=== PATIENT | male | born 1960 | race Caucasian/White ===

== ENCOUNTER 2020-10-11 07:00 | Outpatient (CLI) | payer SELFPAY ==
[2020-10-11 15:50] LABS: Hemoglobin 16.7 g/dL (14.0-18.0); Mean Corpuscular HGB CONC 34.1 G/DL (32.0-36.0); Mean Corpuscular Hemoglobin 32.4 PG (27.0-33.0); Mean Corpuscular Volume 95.1 fl (80.0-100.0); Platelet Count 196 10x3/uL (130-400); RBC Distribution Width 11.8 % (11.5-14.5); Red Blood Cell (RBC) Count 5.15 10x6/uL (4.40-5.80); White Blood Cell (WBC) Count 11.2 10x3/uL (4.5-11.0)
[2020-10-11 16:33] LABS: Anion Gap 14 mmol/L (10-20); BUN (Urea Nitrogen) 10 mg/dL (8.4-25.7); Calc. Creatinine Clearance 0 mL/min (70-130); Calcium 8.9 mg/dL (7.8-10.44); Carbon Dioxide 27 mmol/L (22-29); Chloride 104 mmol/L (98-107); Estimated GFR-MDRD 89; Glucose 94 mg/dL (70-105); Potassium 4.1 mmol/L (3.5-5.1); Sodium 141 mmol/L (136-145)
[2020-10-12 03:43] LABS: SARS-CoV-2 MS2 Positive; SARS-CoV-2 N Gene Negative; SARS-CoV-2 S Gene Negative; SARS-CoV-2 by NAA Not Detected (NotDetected); SARS-CoV-2 orf1ab Negative
== END 2020-10-11 07:01 | disposition home or self-care (01) ==
LOC: LABBT 07:00
PROVIDERS: ATTEND Neurological Surgery
DX: Z01.818 Encounter for other preprocedural examination (principal); Z20.828 Contact with and (suspected) exposure to other viral communicable diseases; M47.12 Other spondylosis with myelopathy, cervical region
CPT/HCPCS: 80048; 85027; 87635; 93005; 93010; U0003

== ENCOUNTER 2020-10-11 15:15 | Inpatient (IN) | payer OTHER, SELFPAY ==
[2020-10-16] MEDS ORDERED: Midazolam HCl 2 mg/2 ml Vial ONE (09:35)
[2020-10-16] MEDS ORDERED: Fentanyl 100 MCG/2 ML VIAL ONE ×4 (09:35→12:48)
[2020-10-16] MEDS ORDERED: Bacitracin Zinc Ointment 30 gm TUBE ONE (10:29)
[2020-10-16] MEDS ORDERED: SUGAMMADEX SODIUM 200 MG/2 ML VIAL ONE (12:07)
--- NOTE | 2020-10-16 12:32 | OP ---
DATE OF PROCEDURE: 10/16/2020 ENGINEERING RESEARCH MANAGER: Eric. PROCEDURES PERFORMED: Removal of hardware, C4 through C7; expiration of spinal fusion, C4 through C7; anterior cervical diskectomy, C3-C4; interbody arthrodesis; intervertebral biomechanical device; local morselized autograft; demineralized bone matrix; anterior titanium instrumentation, C3-4. Posterior approach, C3-4 laminectomy; posterolateral arthrodesis, C3-4; lateral mass screws, C3-4; demineralized bone matrix; local morselized autograft. DESCRIPTION OF PROCEDURE: The patient was brought to the operating room and intubated. He was positioned supine with head in modest extension on a gel-filled donut. A new incision was made in transverse fashion in the right precervical area and dissected medial to the sternocleidomastoid muscle. We identified the anterior cervical spine and identified the prior plate. The prior plate was removed without difficulty and the C4 through C7 levels were explored and seemed to be solidly fused. We next placed distraction across C3-4 and removed the intervertebral disk and using the operative microscope and microdissection techniques, completely decompressed down to the dura from foramen to foramen. The bony endplates were then decorticated for the purpose of arthrodesis and appropriate-sized intervertebral biomechanical PEEK device was brought into the field, filled with demineralized bone matrix; local morselized autograft, and tapped in place securely at C3-4. Next, an anterior plate was brought into field and secured to C3 and C4 using two 14-mm screws at each level. The wound was then extensively irrigated. MAC hemostasis was secured, and the wound was closed in anatomic layers over drain. The patient was then rolled in a prone position on gel-filled chest rolls with the head fixed in a Melida head irrigator in a neutral position. A midline incision was made, and C3 and C4 levels were identified. We performed complete C4 and complete C3 laminectomies for the purpose of decompression. We next placed right-sided lateral mass screws at right C3 and right C4 connected by rods and secured by nuts. The wound was then extensively irrigated. MAC hemostasis was secured. A combination of demineralized bone matrix; local morselized autograft was laid over the lamina posterolateral surfaces for the purpose of arthrodesis. Vancomycin powder was applied, and the wound was closed in anatomic layers over drain. Job ID: [id number]
[2020-10-16] MEDS ORDERED: Promethazine HCl 25 MG/ML VIAL ONE (12:49)
[2020-10-16] MEDS ORDERED: Labetalol HCl 100 MG/20 ML VIAL ONE (13:08)
[2020-10-16] MEDS ORDERED: HYDROmorphone 0.5 MG/0.5 ML SYRINGE ONE ×4 (13:08→16:41)
[2020-10-16] MEDS ORDERED: Dexamethasone 20 MG/5 ML VIAL ONE (14:14)
[2020-10-16] MEDS ORDERED: Glycopyrrolate 0.2 MG/ML 5 ML SYRINGE ONE (14:14)
[2020-10-16] MEDS ORDERED: Ondansetron PF 4 MG/2 ML Vial ONE (14:14)
[2020-10-16] MEDS ORDERED: PROPOFOL 200 MG/20 ML VIAL ONE (14:14)
[2020-10-16] MEDS ORDERED: Lidocaine 1% PF 5 ML VIAL ONE (14:14)
[2020-10-16] MEDS ORDERED: Rocuronium Bromide 10 MG/ML (10ML VIAL) ONE (14:14)
[2020-10-16] MEDS ORDERED: traMADol HCl 50 MG TAB ONE (14:28)
[2020-10-16] MEDS ORDERED: HYDROcodone/Acetaminophen 10/325 mg Tablet ONE (17:42)
[2020-10-16] MEDS ORDERED: Diazepam 5 MG TAB PO PRN (19:38)
[2020-10-16] MEDS ORDERED: HYDROcodone/Acetaminophen 10/325 mg Tablet PO PRN ×2 (19:39→19:45)
[2020-10-16] MEDS ORDERED: diphenhydrAMINE 50 MG/ML VIAL IVP PRN (19:45)
[2020-10-16] MEDS ORDERED: tiZANidine HCl 4 MG TAB PO PRN (19:45)
[2020-10-16] MEDS ORDERED: Morphine 4 MG/ML VIAL SLOW IVP PRN (19:45)
[2020-10-16] MEDS ORDERED: Mag-Al 1200 mg/1200 mg/30 ML UDCUP PO PRN (19:45)
[2020-10-16] MEDS ORDERED: traMADol HCl 50 MG TAB PO PRN ×2 (19:45)
[2020-10-16] MEDS ORDERED: Morphine 2 MG/ML VIAL SLOW IVP PRN (19:45)
[2020-10-16] MEDS ORDERED: Milk Of Magnesia 30 ML UDCUP PO PRN (19:45)
[2020-10-16] MEDS ORDERED: Promethazine HCl 25 MG/ML VIAL IM PRN (19:45)
[2020-10-16] MEDS ORDERED: Ondansetron PF 4 MG/2 ML Vial IVP PRN (19:48)
[2020-10-16] MEDS ORDERED: diphenhydrAMINE 25 MG CAP PO PRN (19:50)
[2020-10-16] MEDS: HYDROcodone/Acetaminophen 10/325 mg Tablet PO PRN (21:58)
[2020-10-16] MEDS: CEFAZOLIN 2 GM in Premix Bag 1 BAG IVPB SCH (21:59)
[2020-10-16] MEDS: Sodium Chloride 0.9% 1,000 ML IV SCH (22:00)
[2020-10-16 22:42] VITALS: BMI 31.1
[2020-10-17] MEDS: CEFAZOLIN 2 GM in Premix Bag 1 BAG IVPB SCH (05:32)
[2020-10-17] MEDS: HYDROcodone/Acetaminophen 10/325 mg Tablet PO PRN (05:34)
[2020-10-17] MEDS ORDERED: Tamsulosin HCl 0.4 MG CAP PO SCH (06:00)
--- NOTE | 2020-10-17 07:54 | DIS ---
DATE OF ADMISSION: 10/16/2020 DATE OF DISCHARGE: 10/17/2020 PROCEDURE: Removal of hardware, C3-C4 anterior and posterior decompression and fusion. DISCHARGE SUMMARY: The patient is a 60-year-old male, known to us for prior C4-C7 ACDF years ago, who was recently evaluated for progressive neck pain and myelopathic symptoms. He was found to have severe stenosis above this prior fusion at C3-C4. He underwent removal of hardware and C3-C4 anterior and posterior decompression and fusion. Following the surgery, he was transitioned to the Med/Surg floor, where his pain has been well controlled with p.o. medications, he is tolerating a regular diet, and he is voiding appropriately. He has been ambulating easily in the hallways. MEGHAN-A had 35 mL out overnight. MEGHAN-B had 0 mL out overnight. These were removed on postoperative day #1. We will plan to dismiss to home. I have discussed home care precautions. We will follow up with the patient in 2 weeks. The patient was provided with scripts for Solen, diazepam, and Keflex. [facility] Olvin checked prior to discharge. Job ID: [id number]
[2020-10-17] MEDS: Sodium Chloride 0.9% 1,000 ML IV SCH (07:59)
[2020-10-17] MEDS ORDERED: metFORMIN 500 MG TAB PO SCH (08:00)
[2020-10-17] MEDS ORDERED: Senokot 8.6 MG TAB PO SCH (09:00)
[2020-10-17] MEDS ORDERED: Atorvastatin Calcium 20 MG TAB PO SCH (09:00)
[2020-10-17] MEDS ORDERED: Lisinopril 20 MG TAB PO SCH (09:00)
[2020-10-17 11:31] VITALS: BP 145/82; TEMP 98.6
== END 2020-10-17 11:44 | disposition home or self-care (01) | DRG 454 ==
LOC: SURG A 10-16 06:58 → SJJU 10-16 19:01
PROVIDERS: ADMIT Neurological Surgery; ATTEND Neurological Surgery
PROC: 0RG10A0 Fusion of Cervical Vertebral Joint with Interbody Fusion Device, Anterior Approach, Anterior Column, Open Approach (ICD-10-PCS; principal; 2020-10-16)
PROC: 0RG1071 Fusion of Cervical Vertebral Joint with Autologous Tissue Substitute, Posterior Approach, Posterior Column, Open Approach (ICD-10-PCS; 2020-10-16)
PROC: 0RB30ZZ Excision of Cervical Vertebral Disc, Open Approach (ICD-10-PCS; 2020-10-16)
PROC: 0PP304Z Removal of Internal Fixation Device from Cervical Vertebra, Open Approach (ICD-10-PCS; 2020-10-16)
PROC: 00NW0ZZ Release Cervical Spinal Cord, Open Approach (ICD-10-PCS; 2020-10-16)
DX: M48.02 Spinal stenosis, cervical region (principal); M47.12 Other spondylosis with myelopathy, cervical region; M50.01 Cervical disc disorder with myelopathy, high cervical region; Z20.828 Contact with and (suspected) exposure to other viral communicable diseases; I10 Essential (primary) hypertension; E78.5 Hyperlipidemia, unspecified; E66.9 Obesity, unspecified; F17.210 Nicotine dependence, cigarettes, uncomplicated; K59.00 Constipation, unspecified; E11.9 Type 2 diabetes mellitus without complications; Z68.31 Body mass index [BMI] 31.0-31.9, adult; Z79.899 Other long term (current) drug therapy; Z79.84 Long term (current) use of oral hypoglycemic drugs
CPT/HCPCS: 76000; C1713; C1768; C1776; J0690; J1100; J1170; J2250; J2405; J2550; J2704; J3010; J3370; J3490

== ENCOUNTER 2020-11-02 09:36 | Outpatient (CLI) | payer OTHER ==
--- NOTE | 2020-11-02 09:58 | RAD ---
CERVICAL SPINE 4 VIEWS: HISTORY: Cervical radiculopathy. Postop followup. COMPARISON: Comparison is made to cervical spine films from 2014. FINDINGS: Prior exam showed anterior plate and screws with interbody implants at the C4, C5, C6, and C7 levels. On today's exam, the prior plate and screws have been removed and there are now anterior plate and sc rews transfixing C3 and C4. The interbody implants noted previously remain in place and there is par tial fusion. There is new interbody implant at C3-4. There are also posterior pedicle screws with ro ds on the right at these levels. Posterior skin silvio are seen. Degenerative spondylytic changes are noted at the C5-6, C6-7 levels and there are anterior bridging o steophytes with partial fusion at these levels. IMPRESSION: [id number] and degenerative changes of the cervical spine noted. POS: AGW
== END 2020-11-02 09:37 | disposition home or self-care (01) ==
LOC: TBSIIMAG 09:36
PROVIDERS: ATTEND Neurological Surgery
DX: M47.12 Other spondylosis with myelopathy, cervical region (principal); M47.22 Other spondylosis with radiculopathy, cervical region; Z98.890 Other specified postprocedural states
CPT/HCPCS: 72040

== ENCOUNTER 2020-12-12 10:30 | Outpatient (CLI) | payer BC, OTHER ==
--- NOTE | 2020-12-12 12:04 | RAD ---
CERVICAL SPINE 3 VIEWS: Date: 12/12/2020 HISTORY: Spondylolysis with myelopathy. Status post surgery 7 weeks ago with pain. COMPARISON: 11/02/2020. FINDINGS: Anterior cervical fusion changes C3-C4 with intradiscal prosthesis. In addition, there are intradisca l prosthesis changes at C4-C5, C5-C6, and C6-C7. No significant malalignment. Minimal prevertebral so ft tissue swelling fullness overlying the lower cervical spine. Overall stable appearance from prior study. IMPRESSION: Stable postoperative changes. POS: OFF
== END 2020-12-12 10:31 | disposition home or self-care (01) ==
LOC: TBSIIMAG 10:30
PROVIDERS: ATTEND Neurological Surgery
DX: M47.12 Other spondylosis with myelopathy, cervical region (principal); Z98.1 Arthrodesis status
CPT/HCPCS: 72040